=== PATIENT | female | born 1940 | race Caucasian/White ===

== ENCOUNTER 2017-06-18 10:09 | Outpatient (CLI) | payer MEDICARE, MEDICAID ==
[2017-06-18 19:36] LABS: ALBUMIN 4.3 g/dL (3.2-5.5); ALBUMIN/GLOBULIN RATIO 1.5 (1.0-2.2); ALKALINE PHOSPHATASE 78 IU/L (42-121); ALT ALANINE AMINOTRANSFERASE 16 IU/L (10-60); AST ASPARTATE AMINOTRANSFERASE 25 IU/L (10-42); BILIRUBIN,TOTAL 0.4 mg/dL (0.2-1.0); BUN - BLOOD UREA NITROGEN 23 mg/dL (6-20); CALCIUM 9.4 mg/dL (8.5-10.3); CARBON DIOXIDE - CO2 26 mmol/L (21-32); CHLORIDE 104 mmol/L (101-111); CHOL/HDL RATIO 3.3 (<4.4); CHOLESTEROL 209 mg/dL; CREATININE 1.2 mg/dL (0.4-1.0); GFR - MDRD 44 (>89); GLUCOSE 126 mg/dL (70-100); HDL CHOLESTEROL 63 mg/dL; LDL CHOLESTEROL,CALCULATED 109 mg/dL; LDL/HDL RATIO 1.7 (<4.4); SODIUM 140 mmol/L (135-145); TOTAL PROTEIN 7.2 g/dL (6.7-8.2); VLDL CHOLESTEROL 37 mg/dL
[2017-06-18 20:01] LABS: HEMOGLOBIN A1C 0.6 g/dL; HEMOGLOBIN A1C % 6.1 % (4.6-6.2)
== END 2017-06-18 10:10 | disposition home or self-care (01) ==
LOC: LAB.WCP 10:09
PROVIDERS: ATTEND Physician Assistant Medical
DX: E11.9 Type 2 diabetes mellitus without complications (principal)
CPT/HCPCS: 36415; 80053; 80061; 83036

== ENCOUNTER 2017-07-01 13:08 | Outpatient (CLI) | payer MEDICARE, MEDICAID ==
--- NOTE | 2017-07-02 11:40 | Mammography Report ---
DATE OF SERVICE: 07/01/2017 DIGITAL SCREENING MAMMOGRAM: 07/01/2017 CLINICAL INDICATION: A 77-year-old nulliparous patient with history of benign biopsy for screening. COMPARISON: 11/2013, 10/2012, 07/2011, 02/2010. FINDINGS: The breasts again demonstrate scattered fibroglandular densities bilaterally. Coarse and punctate, typically benign calcifications are present. Post-biopsy changes in the right breast are stable, no suspicious masses, clustered microcalcifications, or regions of architectural distortion are identified. IMPRESSION: BENIGN FINDINGS. RECOMMENDATION: Routine annual screening unless otherwise clinically indicated. BIRADS CATEGORY 2 - BENIGN FINDINGS. STANDARD QUALIFYING STATEMENTS: 1. This examination was reviewed with the aid of Computer-Aided Detection (CAD). 2. A negative or benign imaging report should not delay biopsy if clinically suspicious findings are present. Consider surgical consultation if warranted. More than 5% of cancers are not identified by imaging. 3. Dense breasts may obscure an underlying neoplasm. TD: 07/02/2017 12:39
== END 2017-07-01 13:09 | disposition home or self-care (01) ==
LOC: DI 13:08
PROVIDERS: ATTEND Physician Assistant Medical
DX: Z12.31 Encounter for screening mammogram for malignant neoplasm of breast (principal)
CPT/HCPCS: 77067

== ENCOUNTER 2017-10-15 08:00 | Outpatient (CLI) | payer MEDICARE, MEDICAID ==
[2017-10-15 13:45] LABS: ALBUMIN 3.9 g/dL (3.2-5.5); ALBUMIN/GLOBULIN RATIO 1.4 (1.0-2.2); ALKALINE PHOSPHATASE 70 IU/L (42-121); ALT ALANINE AMINOTRANSFERASE 17 IU/L (10-60); AST ASPARTATE AMINOTRANSFERASE 20 IU/L (10-42); BILIRUBIN,TOTAL 0.5 mg/dL (0.2-1.0); BUN - BLOOD UREA NITROGEN 14 mg/dL (6-20); CALCIUM 9.5 mg/dL (8.5-10.3); CARBON DIOXIDE - CO2 28 mmol/L (21-32); CHLORIDE 105 mmol/L (101-111); CHOL/HDL RATIO 4.1 (<4.4); CHOLESTEROL 181 mg/dL; CREATININE 1.1 mg/dL (0.4-1.0); GFR - MDRD 48 (>89); GLUCOSE 151 mg/dL (70-100); HDL CHOLESTEROL 44 mg/dL; LDL CHOLESTEROL,CALCULATED 64 mg/dL; LDL/HDL RATIO 1.5 (<4.4); SODIUM 139 mmol/L (135-145); TOTAL PROTEIN 6.7 g/dL (6.7-8.2); VLDL CHOLESTEROL 73 mg/dL
[2017-10-15 14:00] LABS: HEMOGLOBIN A1C 0.72 g/dL; HEMOGLOBIN A1C % 6.5 % (4.6-6.2)
== END 2017-10-15 08:01 | disposition home or self-care (01) ==
LOC: LAB.WCP 08:00
PROVIDERS: ATTEND Physician Assistant Medical
DX: E11.9 Type 2 diabetes mellitus without complications (principal)
CPT/HCPCS: 36415; 80053; 80061; 83036; 83721

== ENCOUNTER 2018-01-04 19:24 | Emergency (ER) | payer MEDICARE, MEDICAID ==
--- NOTE | 2018-01-04 22:36 | ED Physician Documentation ---
PD HPI HEADACHE - Stated complaint Stated Complaint: HEADACHE/HIGH BP - Chief complaint Chief Complaint: General - History obtained from History obtained from: Patient - History of Present Illness Timing - onset: How many hours ago (6-7), Today Timing - onset during: Light activity (she was at store and there was sample of energy drink C4. she had small cup of it and soon after started to feel headache , nauseated. Took BP when got home and it was quite elevated. Symptoms have persisted and BP was going higher.) Timing - duration: Hours Timing - details: Gradual onset Worst headache ever?: No: Worst headache ever? Location: Global Quality: Throbbing Associated symptoms: Nausea, Other (feeling lightheaded). No: Fever, Stiff neck , Vomiting, Weakness, Numbness Contributing factors: Hypertension. No: Recent illness Similar symptoms before: Has not had sx before Recently seen: Not recently seen Review of Systems Constitutional: denies: Fever, Chills, Myalgias Nose: denies: Rhinorrhea / runny nose, Congestion Throat: denies: Sore throat Respiratory: denies: Cough GI: reports: Nausea. denies: Abdominal Pain, Vomiting, Diarrhea Skin: denies: Rash, Lesions Neurologic: reports: Generalized weakness, Headache. 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, Other Derm: Skin cancer surgery - Present Medications Home Medications: Ambulatory Orders Medication Instructions Recorded Confirmed Allopurinol 100 mg PO BID 01/05/18 01/05/18 Aspirin [Aspirin EC] 162.5 mg PO DAILY 01/05/18 01/05/18 Atorvastatin Calcium 40 mg PO DAILY 01/05/18 01/05/18 Ferrous Sulfate 325 mg PO DAILY 01/05/18 01/05/18 Lisinopril 20 mg PO BID 01/05/18 01/05/18 Metformin HCl 850 mg PO BID 01/05/18 01/05/18 Metoprolol Tartrate 50 mg PO DAILY 01/05/18 01/05/18 amLODIPine [Norvasc] 5 mg PO DAILY #30 tablet 01/06/18 - Allergies Allergies/Adverse Reactions: Allergies Allergy/AdvReac Type Severity Reaction Status Date / Time codeine Allergy Nausea Verified 01/04/18 19:49 erythromycin base Allergy Rash Verified 01/04/18 19:49 - Social History Does the pt smoke?: No Smoking Status: Never smoker Does the pt drink ETOH?: No Does the pt have substance abuse?: No - Immunizations Immunizations are current?: Yes - POLST Patient has POLST: No PD ED PE NORMAL - Vitals Vital signs reviewed: Yes - General General: Alert and oriented X 3, No acute distress, Well developed/nourished - HEENT HEENT: PERRL, EOMI, Pharynx benign, Other (fundi appear normal) - Neck Neck: Supple, no meningeal sign, No JVD - Cardiac Cardiac: RRR, No murmur - Respiratory Respiratory: Clear bilaterally - Abdomen Abdomen: Soft, Non tender - Derm Derm: Normal color, Warm and dry - Extremities Extremities: No deformity, No tenderness to palpate - Neuro Neuro: Alert and oriented X 3, 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 Improving here and so would not treat BP per se and just gave med for headache. No focal neuro symptoms. ), d/w patient - Sepsis Event Vital Signs: Oxygen O2 Source Room air Departure - Departure Disposition: 01 Home, Self Care Clinical Impression: Elevated blood pressure reading Headache Qualifiers: Headache type: unspecified Headache chronicity pattern: acute headache Intractability: not intractable Qualified Code(s): R51 - Headache Condition: Stable Record reviewed to determine appropriate education?: Yes Follow-Up: Aicha Parra PA-C [Primary Care Provider] - Comments: Headache, nausea, elevated blood pressure are listed side effects to the C4 energy drink on quick reference that I just did. This seems consistent with the way you felt today. No other apparent worse cause at this time. Take usual medications for tonight. Drink lots of fluids. You should be feeling well into tomorrow. Re-check if recurrent symptoms otherwise. Discharge Date/Time: 01/04/18 23:20
[2018-01-04 23:20] VITALS: BP 165/79
== END 2018-01-04 23:20 | disposition home or self-care (01) ==
LOC: ED 19:24
DX: I10 Essential (primary) hypertension (principal); R51 Headache; E78.00 Pure hypercholesterolemia, unspecified; E11.9 Type 2 diabetes mellitus without complications; M19.90 Unspecified osteoarthritis, unspecified site; Z79.84 Long term (current) use of oral hypoglycemic drugs; Z79.82 Long term (current) use of aspirin
CPT/HCPCS: 99283

== ENCOUNTER 2018-01-05 10:43 | Outpatient (CLI) | payer MEDICARE, MEDICAID | END 2018-01-05 10:44 | disposition critical access hospital (66) | LOC: EMS 10:43 | PROVIDERS: ATTEND Surgery | DX: R07.9 Chest pain, unspecified (principal) | CPT/HCPCS: A0425; A0427 ==

== ENCOUNTER 2018-01-05 11:07 | Observation (INO) | payer MEDICARE, MEDICAID ==
[2018-01-05] MEDS ORDERED: NITROGLYCERIN SL 0.4 MG TABLET SL STA (11:27)
--- NOTE | 2018-01-05 11:32 | ED Physician Documentation ---
PD HPI CHEST PAIN - Stated complaint Stated Complaint: chest discomfort - Chief complaint Chief Complaint: Cardiac - History obtained from History obtained from: Patient, EMS - History of Present Illness Timing - onset: Today (about 9 am.) Timing - onset during: Rest Timing - details: Still present Pain level max: 5 Pain level now: 4 Quality: Tightness Location: Substernal Improved by: Nitro Similar symptoms before: Has not had sx before Recently seen: Clinic - Treatment prior to arrival Treatment prior to arrival: 4 baby aspirin were administered in clinic, and one SL NTG by medics. - Additional information Additional information: The patient is a 77-year-old female who arrives via ambulance after presenting to her clinic physician with chest discomfort, and complaining that "my blood pressure is scaring me." Her blood pressure was 235 systolic at home. She describes slight associated substernal chest discomfort that she rated 5 out of 10 in severity. In clinic she was given 4 baby aspirin, and medics administered 1 sublingual nitroglycerin while en route to the hospital. At the time of arrival her chest discomfort is rated at 4 out of 10 in severity. She denies any associated shortness of breath or vomiting, although she had slight nausea earlier this morning. She denies history of similar symptoms in the past. She is treated for hypertension with lisinopril 20 mg twice daily and metoprolol 50 mg twice daily. She was seen in the emergency department last night with high blood pressure, but it resolved spontaneously and she was discharged without any further change in her medication. Review of Systems Constitutional: denies: Fever, Fatigue Nose: denies: Congestion Throat: denies: Sore throat Cardiac: reports: Chest pain / pressure. 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, Other Derm: Skin cancer surgery - Present Medications Home Medications: Ambulatory Orders Medication Instructions Recorded Confirmed Allopurinol 100 mg PO BID 01/05/18 01/05/18 Aspirin [Aspirin EC] 162.5 mg PO DAILY 01/05/18 01/05/18 Atorvastatin Calcium 40 mg PO DAILY 01/05/18 01/05/18 Ferrous Sulfate 325 mg PO DAILY 01/05/18 01/05/18 Lisinopril 20 mg PO BID 01/05/18 01/05/18 Metformin HCl 850 mg PO BID 01/05/18 01/05/18 Metoprolol Tartrate 50 mg PO DAILY 01/05/18 01/05/18 - Allergies Allergies/Adverse Reactions: Allergies Allergy/AdvReac Type Severity Reaction Status Date / Time codeine Allergy Nausea Verified 01/04/18 19:49 erythromycin base Allergy Rash Verified 01/04/18 19:49 - Social History Does the pt smoke?: No Smoking Status: Never smoker Does the pt drink ETOH?: No Does the pt have substance abuse?: No - Immunizations Immunizations are current?: Yes - POLST Patient has POLST: No PD ED PE NORMAL - Vitals Vital signs reviewed: Yes (hypertensive) - General General: Alert and oriented X 3, Well developed/nourished - HEENT HEENT: Atraumatic, Moist mucous membranes, Pharynx benign - Neck Neck: No adenopathy, No JVD - Cardiac Cardiac: RRR, No murmur - Respiratory Respiratory: No respiratory distress, Clear bilaterally - Abdomen Abdomen: Soft, Non tender - Back Back: No CVA TTP - Derm Derm: No rash - Extremities Extremities: No edema, No calf tenderness / cord - Neuro Neuro: Alert and oriented X 3, No motor deficit, Normal speech Results - Vitals Vitals: Vital Signs - 24 hr 01/05/18 01/05/18 01/05/18 11:12 13:03 17:12 Temperature 36.4 C L Heart Rate 57 L 58 L 58 L Respiratory 18 16 17 Rate Blood Pressure 223/96 H 196/71 H 165/50 H O2 Saturation 97 98 97 Oxygen O2 Source Room air - EKG (time done) 11:14 Rate: Rate (enter#) (57) Rhythm: Other (junctional rhythm) QRS: Normal Ischemia: Normal ST segments Compare to prior EKG: Old EKG unavailable Computer interpretation: Agree with computer 17:01 Rate: Rate (enter#) (58) Rhythm: NSR [place]: Normal Intervals: Normal OR QRS: Normal Ischemia: Normal ST segments Other comments: Other comments (Early R-wave transition.) Compare to prior EKG: Unchanged from prior EKG Computer interpretation: Agree with computer - Labs Labs: Laboratory Tests 01/05/18 01/05/18 01/05/18 11:28 11:45 11:45 WBC 8.9 RBC 4.31 Hgb 12.5 Hct 37.6 MCV 87.1 MCH 29.0 MCHC 33.3 RDW 13.4 Plt Count 237 MPV 9.3 Neut # (Auto) 6.8 H Lymph # (Auto) 1.2 L Dale # (Auto) 0.7 Eos # (Auto) 0.2 Baso # (Auto) 0.1 Absolute Nucleated RBC 0.00 Nucleated RBC % 0.0 Sodium 140 Potassium 3.7 Chloride 104 Carbon Dioxide 28 Anion Gap 8.0 BUN 15 Creatinine 1.1 H Estimated GFR (MDRD) 48 L Glucose 146 H Glycated Hemoglobin 7.1 H Estim Average Glucose 157 H Calcium 9.2 Total Bilirubin 0.8 AST 22 ALT 17 Alkaline Phosphatase 84 Troponin I Total Protein 6.5 L Albumin 3.7 Globulin 2.8 Albumin/Globulin Ratio 1.3 Lipase 47 01/05/18 01/05/18 11:45 16:36 WBC RBC Hgb Hct MCV MCH MCHC RDW Plt Count MPV Neut # (Auto) Lymph # (Auto) Dale # (Auto) Eos # (Auto) Baso # (Auto) Absolute Nucleated RBC Nucleated RBC % Sodium Potassium Chloride Carbon Dioxide Anion Gap BUN Creatinine Estimated GFR (MDRD) Glucose Glycated Hemoglobin Estim Average Glucose Calcium Total Bilirubin AST ALT Alkaline Phosphatase Troponin I < 0.04 0.05 Total Protein Albumin Globulin Albumin/Globulin Ratio Lipase - Rads (name of study) 1-view CXR Radiology: Prelim report reviewed, EMP read contemporaneously, See rad report ( No radiographically apparent abnormality in the chest.) PD MEDICAL DECISION MAKING - ED course Complexity details: reviewed old records, reviewed results, re-evaluated patient , considered differential, d/w patient, d/w family, d/w regional sales consultant ED course: The patient's presentation is significant for chest discomfort with hypertension. Her initial EKG does not reveal acute ischemic abnormalities, and her initial troponin level is normal at less than 0.04. 1 sublingual nitroglycerin was administered, and her chest discomfort completely resolved. Her blood pressure came down to 145 systolic. She remained asymptomatic throughout the remainder of her time in the emergency department. A second troponin level was checked 5 hours later and it was still well within the normal range, but at 0.05 was ever so slightly higher than the initial troponin. I discussed her condition with gasket inspector, Dr. Ibrahim, who advises observing her for a repeat troponin level, stress test, and maximization of blood pressure control. I discussed her condition with Dr. Monsalve, who accepts her for further evaluation and treatment. - Sepsis Event Vital Signs: Vital Signs - 24 hr 01/05/18 01/05/18 01/05/18 11:12 13:03 17:12 Temperature 36.4 C L Heart Rate 57 L 58 L 58 L Respiratory 18 16 17 Rate Blood Pressure 223/96 H 196/71 H 165/50 H O2 Saturation 97 98 97 Oxygen O2 Source Room air Departure - Departure Disposition: ED Place in Observation Clinical Impression: Chest pain, rule out acute myocardial infarction Hypertension Qualifiers: Hypertension type: essential hypertension Qualified Code(s): I10 - Essential ( primary) hypertension Condition: Stable Discharge Date/Time: 01/05/18 18:18
[2018-01-05 11:54] LABS: BASOPHILS # (AUTO) 0.1 10^3/uL (0.0-0.1); BASOPHILS % (AUTO) 0.7 %; EOSINOPHILS # (AUTO) 0.2 10^3/uL (0.0-0.7); EOSINOPHILS % (AUTO) 2.2 %; HGB - HEMOGLOBIN 12.5 g/dL (12.0-16.0); LYMPHOCYTES # (AUTO) 1.2 10^3/uL (1.5-3.5); LYMPHOCYTES % (AUTO) 13.4 %; MEAN CORPUSCULAR HGB CONC 33.3 g/dL (32.0-36.0); MEAN CORPUSCULAR VOLUME 87.1 fL (81.0-99.0); MEAN PLATELET VOLUME 9.3 fL (7.9-10.8); MONOCYTES # (AUTO) 0.7 10^3/uL (0.0-1.0); MONOCYTES % (AUTO) 7.5 %; NEUTROPHILS # (AUTO) 6.8 10^3/uL (1.5-6.6); NEUTROPHILS % (AUTO) 76.2 %; PLT - PLATELET COUNT 237 10^3/uL (130-450); RED BLOOD COUNT 4.31 10^6/uL (4.20-5.40); RED CELL DISTRIBUTION WIDTH 13.4 % (12.0-15.0); WHITE BLOOD COUNT 8.9 x10^3/uL (4.8-10.8)
[2018-01-05 12:06] LABS: ALBUMIN 3.7 g/dL (3.2-5.5); ALBUMIN/GLOBULIN RATIO 1.3 (1.0-2.2); BILIRUBIN,TOTAL 0.8 mg/dL (0.2-1.0); CALCIUM 9.2 mg/dL (8.5-10.3); CREATININE 1.1 mg/dL (0.4-1.0); TOTAL PROTEIN 6.5 g/dL (6.7-8.2)
--- NOTE | 2018-01-05 13:12 | XRAY Report ---
Procedure Date: 01/05/2018 Accession Number: [id number] / [id number] Procedure: XR - Chest 1 View X-Ray CPT Code: 67367 FULL RESULT: EXAM: CHEST RADIOGRAPHY EXAM DATE: 01/05/2018 12:50 PM. CLINICAL HISTORY: Chest pain. COMPARISON: None. TECHNIQUE: 1 view. 2 images are provided. FINDINGS: Lungs/Pleura: No focal opacities evident. No pleural effusion. No pneumothorax. Mediastinum: Within exam limitations, the cardiomediastinal contour is normal. Aortic atherosclerosis. Other: None. IMPRESSION: No radiographically apparent acute abnormality in the chest. RADIA
[2018-01-05] MEDS ORDERED: ONDANSETRON 4 MG/2 ML VIAL IVP PRN (17:38)
[2018-01-05] MEDS ORDERED: ONDANSETRON ODT 4 MG TABLET TL PRN (17:38)
[2018-01-05] MEDS ORDERED: SODIUM CHLORIDE FLUSH 0.9% 10 ML SYRINGE IVP PRN (17:38)
[2018-01-05] MEDS ORDERED: MORPHINE 2 MG/ML SYRINGE IVP PRN (17:41)
[2018-01-05] MEDS ORDERED: NITROGLYCERIN SL 0.4 MG TABLET SL PRN (17:41)
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
[2018-01-05 18:29] LABS: HB2 TOTAL 13.2 g/dL; HEMOGLOBIN A1C 0.72 g/dL; HEMOGLOBIN A1C % 7.1 % (4.6-6.2)
[2018-01-05 18:29] LABS: CALCIUM 9.3 mg/dL (8.5-10.3); CREATININE 1.2 mg/dL (0.4-1.0)
[2018-01-05] MEDS: hydrALAZINE INJ 20 MG/ML VIAL IVP PRN (19:50)
[2018-01-05] MEDS ORDERED: hydrALAZINE INJ 20 MG/ML VIAL ONE (19:58)
[2018-01-05] MEDS ORDERED: INSULIN ASPART 300 UNIT/3 ML PEN SUBQ SCH (21:00)
[2018-01-05] MEDS ORDERED: ATORVASTATIN 40 MG TABLET PO SCH (21:00)
[2018-01-05] MEDS ORDERED: METOPROLOL TARTRATE 50 MG TABLET PO SCH (21:00)
[2018-01-05] MEDS ORDERED: LISINOPRIL 20 MG TABLET PO SCH (21:00)
[2018-01-05] MEDS: LISINOPRIL 20 MG TABLET PO SCH (22:41)
[2018-01-05] MEDS: METOPROLOL TARTRATE 50 MG TABLET PO SCH (22:41)
[2018-01-06] MEDS: SODIUM CHLORIDE FLUSH 0.9% 10 ML SYRINGE IVP SCH ×2 (02:43→09:34)
[2018-01-06] MEDS: hydrALAZINE INJ 20 MG/ML VIAL IVP PRN ×2 (05:13→13:19)
[2018-01-06] MEDS: INSULIN REGULAR HUMAN 100 UNIT/1 ML 10 ML MDV SUBQ SCH ×2 (05:29→11:56)
[2018-01-06] MEDS: METOPROLOL TARTRATE 50 MG TABLET PO SCH (06:59)
[2018-01-06] MEDS: LISINOPRIL 20 MG TABLET PO SCH (06:59)
--- NOTE | 2018-01-06 07:40 | Discharge Plan ---
Discharge Plan Disposition: 01 Home, Self Care Condition: Stable Prescriptions: amLODIPine [Norvasc] 5 mg PO DAILY #30 tablet Diet: Cardiac Activity Restrictions: Activity as Tolerated Shower Restrictions: No Driving Restrictions: No Additional Instructions or Follow Up instructions: Your were admitted to the hospital because of chest pain that went straight through to your back and radiated to your left shoulder. This was in association with a very severely elevated blood pressure. We did 3 sets of blood tests to make sure you were not having a heart attack. You are not. Your EKG is stable. Your chest x-ray did not show any changes in your aorta because sometimes chest pain can be a leaking aorta. However, your blood pressure is still very high at times. We did a renal artery ultrasound to see if the arteries were open. In some patients the arteries can get very narrow and Trickett the kidneys into thinking may have low blood pressure. If the kidneys think you have low blood pressure they respond by secreting a protein to give you high blood pressure. That ultrasound result is pending at discharge and your provider will need to review those results with you. Please make sure you see your primary care provider in follow-up in the next few days. I want to make sure that your blood pressure stays stable. In addition to your lisinopril and metoprolol I have added a medication called amlodipine. You may need all 3 blood pressure drugs to control your blood pressure in the future. You will also need to be referred for a heart stress test. We were unable to do one here before you left because our machine is being replaced by a new machine. Have your primary care provider make that referral to a Physics And Astronomy Professor of your choice. No Smoking: If you smoke, Please STOP! Call for help. Follow-up with: Aicha Parra PA-C [Primary Care Provider] -
[2018-01-06] MEDS ORDERED: cloNIDine 0.1 MG PATCH TOP SCH (08:00)
[2018-01-06] MEDS ORDERED: POLYETHYLENE GLYCOL 3350 17 GM PACKET PO SCH (09:00)
[2018-01-06] MEDS: amLODIPine 5 MG TABLET PO SCH ×2 (09:34→10:17)
--- NOTE | 2018-01-06 13:57 | DISCHARGE SUMMARY ---
"Discharge Summary Admit Date: 01/05/18 Discharge Date: 01/06/18 Discharging Provider: Verna Monsalve MD Primary Care Provider: LOTTIE Howard Code Status: Attempt Resuscitation Condition at Discharge: Stable Discharge Disposition: 01 Home, Self Care - DIAGNOSES Discharge Diagnoses with Status of Each Condition: 1. Chest pain 2. Uncontrolled hypertension 3. Controlled type 2 diabetes mellitus with stage III chronic kidney disease 4. Hyperlipidemia - HPI History of Present Illness: The patient is a morbidly obese white female who has hypertension, hyperlipidemia, and diabetes as cardiac risk factors. She was seen in the emergency room yesterday because of a headache, and was found to have hypertension. It was attributed to an energy drink she drank, and she was sent home. She continued to have a mild headache, felt woozy, and having back pain. The back pain has been going on for a week between her shoulder blades and radiating to her left upper arm and shoulder. When she continued to feel badly she took her blood pressure and it was 208/90 in the right arm and 210/84 in the left arm. She called her primary care office and they saw her in the office. She was given aspirin in the office. And because of continued blood pressure elevation and a junctional rhythm on EKG she was sent to the emergency room.She was also having some mild chest discomfort with it. She was nauseated. But she is always nauseated when she takes her pills on an empty stomach so she does not feel that is new. There is no diaphoresis. She denies shortness of breath. In the emergency room she was evaluated by Dr. Mckeon. Her EKG showed a normal sinus rhythm. There was no junctional rhythm. She was definitely hypertensive with a systolic of 223 over a diastolic of 96. She was given nitroglycerin in the emergency room. One dose. And between 11 in the morning and 5 in the afternoon blood pressure went to 165/50. Initial troponin was undetectable at less than 0.04. And [address] hours later was 0.05. Dr. Mckeon spoke to Dr. Aguilar, Cardiology. She felt it would be prudent to place the patient in observation to repeat her cardiac enzymes in [address] Mckeon intimated that we could do a stress test tomorrow. We do not have nuclear medicine capability and Dr. Aguilar had wanted a stress test on this patient before discharge. As such we will need to make arrangements for stress test imaging in an outside facility at discharge. In review of her old records she was seen in [facility] in January 2012 for the same symptoms. She was dizzy for 2 days, not feeling well, and blood pressure was elevated. At that time she was on lisinopril. Blood pressure was 220/84. She was given hydrochlorothiazide and metoprolol was added and she was told to follow-up with her primary care provider - CONSULTS | PROCEDURES Procedures: renal artery ultrasound: - HOSPITAL COURSE Hospital Course: (1) Chest pain Conclusion/Plan: She has all the risk factors for coronary artery disease including age, diabetes , hypertension, hyperlipidemia. All of her risk factors appear well managed and review of her outpatient charts and her numbers. Nevertheless she has quite elevated blood pressure. That could also be causing the chest pain. Serial cardiac enzymes 4 were all negative. EKG without changes. Telemetry overnight without arrhythmia. At this time we do not have nuclear medicine imaging and the patient will need to either return to this facility in the near future when nuclear medicine is back up and running. Or, I would strongly recommend, she be referred to [facility] or [facility] for nuclear medicine stress test. (2) Hypertension Conclusion/Plan: She is not controlled at this time. The day before admission, she had a high energy drink with no medication. She has been taking her medications since then and blood pressure is still elevated. I added Norvasc. She will need blood pressure followup. Still goes up to 200's on occasion. I have ordered a renal artery ultrasound and results are pending at discharge. Provider will need to review with patient. Preliminary report shows medical renal disease, but no renal artery stenosis. Qualifiers: Hypertension type: essential hypertension Qualified Code(s): I10 - Essential (primary) hypertension (3) Controlled type 2 diabetes mellitus with stage 3 chronic kidney disease Conclusion/Plan: A1c is controlled in her medical records. On very minimal medication. I did explain that metformin sometimes causes diarrhea to worsen. She appears to have irritable bowel syndrome 5-6 years before her use of metformin. She says that she is pretty comfortable with the metformin and can live with the diarrhea and prefers to stay on it. A1c is 7/1%. Glucose was 125-160 here. No change made in outpatient medicines. Qualifiers: Diabetes mellitus exterminator helper termite insulin use: without exterminator helper termite use Qualified Code(s): E11.22 - Type 2 diabetes mellitus with diabetic chronic kidney disease ; N18.3 - Chronic kidney disease, stage 3 (moderate); N18.3 - Chronic kidney disease, stage 3 (moderate); N18.3 - Chronic kidney disease, stage 3 (moderate) (4) Hyperlipidemia Conclusion/Plan: Ongoing risk factor management with a statin. Continue same. - ALLERGIES Allergies/Adverse Reactions: Allergies Allergy/AdvReac Type Severity Reaction Status Date / Time codeine Allergy Nausea Verified 01/04/18 19:49 erythromycin base Allergy Rash Verified 01/04/18 19:49 - MEDICATIONS Home Medications: Ambulatory Orders Medication Instructions Recorded Confirmed Allopurinol 100 mg PO BID 01/05/18 01/05/18 Aspirin [Aspirin EC] 162.5 mg PO DAILY 01/05/18 01/05/18 Atorvastatin Calcium 40 mg PO DAILY 01/05/18 01/05/18 Ferrous Sulfate 325 mg PO DAILY 01/05/18 01/05/18 Lisinopril 20 mg PO BID 01/05/18 01/05/18 Metformin HCl 850 mg PO BID 01/05/18 01/05/18 Metoprolol Tartrate 50 mg PO DAILY 01/05/18 01/05/18 amLODIPine [Norvasc] 5 mg PO DAILY #30 tablet 01/06/18 - PHYSICAL EXAM AT DISCHARGE General Appearance: positive: No acute distress, Alert Eyes Bilateral: positive: PERRL, EOMI ENT: positive: Pharynx nml Neck: positive: No JVD. negative: Stiff neck, Carotid bruit Respiratory: positive: Chest non-tender. negative: Wheezes, Rales, Rhonchi Cardiovascular: positive: Regular rate & rhythm. negative: Systolic murmur, Gallop/S4, Friction rub Peripheral Pulses: positive: 1+ Abdomen: positive: Non-tender, No organomegaly, Nml bowel sounds, No distention , Other (obese) Skin: positive: Warm, Dry Extremities: positive: Non-tender, No pedal edema Neurologic/Psychiatric: positive: Oriented x3, CN's nml (2-12), Motor nml, Sensation nml - LABS Result Diagrams: 01/05/18 11:45 01/05/18 18:15"
--- NOTE | 2018-01-06 13:57 | Ultrasound Report ---
Procedure Date: 01/06/2018 Accession Number: [id number] / [id number] Procedure: US - Arterial Visceral Complete CPT Code: FULL RESULT: EXAM: RENAL ARTERY DOPPLER ULTRASOUND EXAM DATE: 01/06/2018 01:14 PM. CLINICAL HISTORY: Severely elevated hypertension. COMPARISON: 06/13/2014. TECHNIQUE: Real-time sonographic vascular imaging was performed by the internal audit consultant through the renal arterial system with a linear transducer utilizing color-flow, Doppler flow, and spectral analysis. Multiple field service representative static images were saved for review. FINDINGS: Right kidney measures 10.5 x 5.9 x 5.4 cm. No hydronephrosis. Mildly increased cortical echogenicity. No mass or stone evident. Left kidney measures 10.6 x 5.5 x 4.8 cm. No hydronephrosis. Mildly increased cortical echogenicity. No mass or stone evident. RIGHT: Right Segmental Artery: Upper pole: PSV 21 cm/sec, RI 0.78. Mid pole: PSV 24 cm/sec, RI 0.78. Lower pole: PSV 21 cm/sec, RI 0.80. Right Renal Artery: Origin: PSV 135 cm/sec, RA/AO 1.82. Proximal: PSV 160 cm/sec, RA/AO 2.16. Mid: PSV 128 cm/sec, RA/AO 1.73. Distal: PSV 109 cm/sec, RA/AO 1.47. Aorta PSV: 74 cm/sec. RRV Patent: Yes. LEFT: Left Segmental Artery: Upper pole: PSV 22 cm/sec, RI 0.79. Mid pole: PSV 19 cm/sec, RI 0.76. Lower pole: PSV 22 cm/sec, RI 0.82. Left Renal Artery: Origin: PSV 93 cm/sec, RA/AO 1.26. Proximal: PSV 98 cm/sec, RA/AO 1.32. Mid: PSV 78 cm/sec, RA/AO 1.05. Distal: PSV 114 cm/sec, RA/AO 1.54. LRV Patent: Yes. IMPRESSION: 1. No sonographic evidence of renal artery stenosis. 2. Mildly increased renal cortical echogenicity is consistent with medical renal disease. Mildly elevated resistive indices of intrarenal arteries. CRITERIA FOR CLASSIFICATION OF RENAL ARTERY (RA) DISEASE BY DUPLEX SCANNING: RA Diameter Reduction/ RA PSV/ RAR: Normal, < 180 cm/sec, < 3.5 < 60%, >= 180 cm/sec, < 3.5 >= 60%, >= 180 cm/sec, >= 3.5 Total Occlusion: Undetectable; Not applicable RADIA
[2018-01-06 14:12] VITALS: BP 156/47
== END 2018-01-06 14:06 | disposition home or self-care (01) ==
LOC: EDUNIT# → ED 11:07 → MS2 17:38
PROVIDERS: ADMIT Specialist; ATTEND Specialist
DX: R07.89 Other chest pain (principal); I10 Essential (primary) hypertension; E78.5 Hyperlipidemia, unspecified; E11.22 Type 2 diabetes mellitus with diabetic chronic kidney disease; N18.3 Chronic kidney disease, stage 3 (moderate); E66.01 Morbid (severe) obesity due to excess calories; K58.0 Irritable bowel syndrome with diarrhea; F41.9 Anxiety disorder, unspecified; M10.9 Gout, unspecified; Z68.31 Body mass index [BMI] 31.0-31.9, adult; Z79.82 Long term (current) use of aspirin; Z79.899 Other long term (current) drug therapy; Z79.84 Long term (current) use of oral hypoglycemic drugs; Z87.891 Personal history of nicotine dependence; Z85.820 Personal history of malignant melanoma of skin
CPT/HCPCS: 36415; 71045; 80048; 80053; 83036; 83690; 84484; 85025; 93005; 93975; 96374; 96376; 99284; A9270; G0378

== ENCOUNTER 2018-01-08 08:00 | Outpatient (CLI) | payer MEDICARE, MEDICAID ==
[2018-01-08 12:56] LABS: CALCIUM 9.5 mg/dL (8.5-10.3); CREATININE 1.2 mg/dL (0.4-1.0); MAGNESIUM 1.5 mg/dL (1.7-2.8)
== END 2018-01-08 08:01 | disposition home or self-care (01) ==
LOC: LAB.WCP 08:00
PROVIDERS: ATTEND Family Medicine
DX: I49.8 Other specified cardiac arrhythmias (principal); I10 Essential (primary) hypertension
CPT/HCPCS: 36415; 80048; 82088; 83735; 84244

== ENCOUNTER 2018-02-04 08:21 | Outpatient (CLI) | payer MEDICARE, MEDICAID ==
[2018-02-04 12:44] LABS: ALBUMIN/GLOBULIN RATIO 1.3 (1.0-2.2); ALKALINE PHOSPHATASE 74 IU/L (42-121); ALT ALANINE AMINOTRANSFERASE 21 IU/L (10-60); AST ASPARTATE AMINOTRANSFERASE 22 IU/L (10-42); BILIRUBIN,TOTAL 0.8 mg/dL (0.2-1.0); BUN - BLOOD UREA NITROGEN 32 mg/dL (6-20); CALCIUM 9.9 mg/dL (8.5-10.3); CARBON DIOXIDE - CO2 26 mmol/L (21-32); CHLORIDE 107 mmol/L (101-111); CHOL/HDL RATIO 2.7 (<4.4); CHOLESTEROL 107 mg/dL; CREATININE 1.4 mg/dL (0.4-1.0); GFR - MDRD 36 (>89); GLUCOSE 146 mg/dL (70-100); HDL CHOLESTEROL 40 mg/dL; LDL CHOLESTEROL,CALCULATED 21 mg/dL; LDL/HDL RATIO 0.5 (<4.4); MAGNESIUM 1.9 mg/dL (1.7-2.8); SODIUM 139 mmol/L (135-145); VLDL CHOLESTEROL 46 mg/dL
[2018-02-04 20:41] LABS: HB2 TOTAL 12.8 g/dL; HEMOGLOBIN A1C 0.68 g/dL
== END 2018-02-04 08:22 | disposition home or self-care (01) ==
LOC: LAB.WCP 08:21
PROVIDERS: ATTEND Physician Assistant Medical
DX: E11.22 Type 2 diabetes mellitus with diabetic chronic kidney disease (principal); E83.42 Hypomagnesemia
CPT/HCPCS: 36415; 80053; 80061; 83036; 83721; 83735

== ENCOUNTER 2018-05-14 08:40 | Outpatient (CLI) | payer MEDICARE, MEDICAID ==
[2018-05-14 13:28] LABS: ALBUMIN/GLOBULIN RATIO 1.4 (1.0-2.2); ALKALINE PHOSPHATASE 76 IU/L (42-121); ALT ALANINE AMINOTRANSFERASE 19 IU/L (10-60); AST ASPARTATE AMINOTRANSFERASE 20 IU/L (10-42); BILIRUBIN,TOTAL 0.7 mg/dL (0.2-1.0); BUN - BLOOD UREA NITROGEN 23 mg/dL (6-20); CALCIUM 9.4 mg/dL (8.5-10.3); CARBON DIOXIDE - CO2 25 mmol/L (21-32); CHLORIDE 108 mmol/L (101-111); CHOL/HDL RATIO 2.4 (<4.4); CHOLESTEROL 114 mg/dL; CREATININE 1.2 mg/dL (0.4-1.0); GFR - MDRD 43 (>89); GLUCOSE 135 mg/dL (70-100); HDL CHOLESTEROL 48 mg/dL; LDL CHOLESTEROL,CALCULATED 37 mg/dL; LDL/HDL RATIO 0.8 (<4.4); SODIUM 139 mmol/L (135-145); TOTAL PROTEIN 6.8 g/dL (6.7-8.2); VLDL CHOLESTEROL 29 mg/dL
[2018-05-14 14:12] LABS: HB2 TOTAL 12.2 g/dL; HEMOGLOBIN A1C 0.56 g/dL; HEMOGLOBIN A1C % 6.4 % (4.6-6.2)
== END 2018-05-14 08:41 | disposition home or self-care (01) ==
LOC: LAB.WCP 08:40
PROVIDERS: ATTEND Physician Assistant Medical
DX: E11.22 Type 2 diabetes mellitus with diabetic chronic kidney disease (principal)
CPT/HCPCS: 36415; 80053; 80061; 83036; 83721

== ENCOUNTER 2018-11-09 11:03 | Outpatient (CLI) | payer MEDICARE, MEDICAID ==
[2018-11-09 19:11] LABS: ALBUMIN 4.3 g/dL (3.2-5.5); ALBUMIN/GLOBULIN RATIO 1.5 (1.0-2.2); ALKALINE PHOSPHATASE 84 IU/L (42-121); ALT ALANINE AMINOTRANSFERASE 17 IU/L (10-60); AST ASPARTATE AMINOTRANSFERASE 20 IU/L (10-42); BILIRUBIN,TOTAL 0.7 mg/dL (0.2-1.0); BUN - BLOOD UREA NITROGEN 33 mg/dL (6-20); CALCIUM 9.9 mg/dL (8.5-10.3); CARBON DIOXIDE - CO2 25 mmol/L (21-32); CHLORIDE 107 mmol/L (101-111); CHOL/HDL RATIO 2.7 (<4.4); CHOLESTEROL 134 mg/dL; CREATININE 1.5 mg/dL (0.4-1.0); GFR - MDRD 34 (>89); GLUCOSE 125 mg/dL (70-100); HDL CHOLESTEROL 49 mg/dL; LDL CHOLESTEROL,CALCULATED 51 mg/dL; MAGNESIUM 1.7 mg/dL (1.7-2.8); SODIUM 139 mmol/L (135-145); TOTAL PROTEIN 7.2 g/dL (6.7-8.2); VLDL CHOLESTEROL 34 mg/dL
[2018-11-09 19:41] LABS: HB2 TOTAL 13.2 g/dL; HEMOGLOBIN A1C 0.63 g/dL; HEMOGLOBIN A1C % 6.5 % (4.6-6.2)
== END 2018-11-09 11:04 | disposition home or self-care (01) ==
LOC: LAB.WCP 11:03
PROVIDERS: ATTEND Physician Assistant Medical
DX: E11.22 Type 2 diabetes mellitus with diabetic chronic kidney disease (principal); E83.42 Hypomagnesemia
CPT/HCPCS: 36415; 80053; 80061; 83036; 83721; 83735

== ENCOUNTER 2018-12-06 08:00 | Outpatient (CLI) | payer MEDICARE, MEDICAID ==
[2018-12-06 18:09] LABS: MEAN CORPUSCULAR HGB CONC 30.2 g/dL (32.0-36.0); MEAN CORPUSCULAR VOLUME 92.6 fL (81.0-99.0); MEAN PLATELET VOLUME 12.3 fL (7.9-10.8); RED BLOOD COUNT 3.93 10^6/uL (4.20-5.40); RED CELL DISTRIBUTION WIDTH 13.6 % (12.0-15.0); WHITE BLOOD COUNT 8.5 x10^3/uL (4.8-10.8)
[2018-12-06 18:22] LABS: CREATININE 1.4 mg/dL (0.4-1.0)
[2018-12-06 18:27] LABS: CREATININE,URINE 229.5 mg/dL; PROTEIN/CREATININE RATIO,URINE 0.1 (<=0.2)
[2018-12-06 18:40] LABS: CALCIUM 9.5 mg/dL (8.5-10.3)
== END 2018-12-06 08:01 | disposition home or self-care (01) ==
LOC: LAB.WCP 08:00
PROVIDERS: ATTEND Internal Medicine Nephrology
DX: N05.9 Unspecified nephritic syndrome with unspecified morphologic changes (principal); D70.9 Neutropenia, unspecified; R80.9 Proteinuria, unspecified
CPT/HCPCS: 36415; 80048; 82570; 84156; 85027

== ENCOUNTER 2018-12-24 13:15 | Outpatient (CLI) | payer MEDICARE, MEDICAID ==
[2018-12-24 19:04] LABS: CALCIUM 9.6 mg/dL (8.5-10.3); CREATININE 1.5 mg/dL (0.4-1.0)
== END 2018-12-24 23:59 | disposition home or self-care (01) ==
LOC: LAB.WCP 13:15
PROVIDERS: ATTEND Internal Medicine Nephrology
DX: N05.9 Unspecified nephritic syndrome with unspecified morphologic changes (principal)
CPT/HCPCS: 36415; 80048

== ENCOUNTER 2018-12-29 07:45 | Outpatient (CLI) | payer MEDICARE, MEDICAID ==
--- NOTE | 2018-12-29 14:50 | Ultrasound Report ---
Reason: ACUTE KIDNEY INJURY Procedure Date: 12/29/2018 Accession Number: [id number] / [id number] Procedure: US - Retroperitoneal CPT Code: FULL RESULT: EXAM: RENAL ULTRASOUND EXAM DATE: 12/29/2018 08:58 AM. CLINICAL HISTORY: Acute kidney injury. COMPARISON: None. TECHNIQUE: Real-time scanning was performed with static images obtained. FINDINGS: The bilateral cortical echogenicity of the kidneys is slightly increased. Right Kidney: 11.0 cm. There is mild right hydronephrosis. No calculi or mass is identified. Parenchymal flow is preserved for limited color Doppler. Left Kidney: 10.7 cm. Normal echotexture with no stones, contour-deforming masses, or hydronephrosis. Parenchymal flow is preserved for limited color Doppler. Upper pole simple cyst, 1 cm. Bladder: Bilateral jets seen. The prevoid bladder volume was 224 cc. The postvoid bladder volume was 8 cc. Other: None. IMPRESSION: Mild right hydronephrosis with preserved bilateral ureteral jets. Increased cortical echogenicity bilaterally in keeping with medical renal disease. RADIA
== END 2018-12-29 07:46 | disposition home or self-care (01) ==
LOC: DI 07:45
PROVIDERS: ATTEND Internal Medicine Nephrology
DX: N13.30 Unspecified hydronephrosis (principal); N17.9 Acute kidney failure, unspecified
CPT/HCPCS: 76770

== ENCOUNTER 2019-01-14 | Outpatient (CLI) | payer MEDICARE, MEDICAID | END 2019-01-14 23:59 | disposition home or self-care (01) ==

== ENCOUNTER 2019-03-04 08:00 | Outpatient (CLI) | payer MEDICARE, MEDICAID ==
[2019-03-04 12:55] LABS: ALBUMIN 3.7 g/dL (3.2-5.5); ALBUMIN/GLOBULIN RATIO 1.2 (1.0-2.2); BILIRUBIN,TOTAL 0.6 mg/dL (0.2-1.0); CREATININE 1.2 mg/dL (0.4-1.0); TOTAL PROTEIN 6.7 g/dL (6.7-8.2)
[2019-03-04 13:10] LABS: CALCIUM 9.5 mg/dL (8.5-10.3)
[2019-03-04 13:12] LABS: HEMOGLOBIN A1C 0.47 g/dL; HEMOGLOBIN A1C % 6.1 % (4.6-6.2)
== END 2019-03-04 23:59 | disposition home or self-care (01) ==
LOC: LAB.WCP 08:00
PROVIDERS: ATTEND Physician Assistant Medical
DX: E11.29 Type 2 diabetes mellitus with other diabetic kidney complication (principal)
CPT/HCPCS: 36415; 80053; 83036

== ENCOUNTER 2019-12-20 14:40 | Outpatient (CLI) | payer MEDICARE, MEDICAID | END 2019-12-20 23:59 | disposition home or self-care (01) | LOC: LAB 14:40 | PROVIDERS: ATTEND Physician Assistant Medical | DX: J06.9 Acute upper respiratory infection, unspecified (principal); Z20.828 Contact with and (suspected) exposure to other viral communicable diseases | CPT/HCPCS: 81599 ==

== ENCOUNTER 2020-04-20 15:29 | Outpatient (CLI) | payer MEDICARE, OTHER ==
--- NOTE | 2020-04-20 16:45 | XRAY Report ---
PROCEDURE: Lumbar Spine 2 View INDICATIONS: CHRONIC NECK PAIN, LUMBAR RADICULOPATHY TECHNIQUE: 2 views of the lumbar spine were acquired. COMPARISON: None. FINDINGS: Bones: 5 [id number] vertebrae are present. There is trace retrolisthesis of L2 on L3, L3 on L4 . Moderate disc and foraminal narrowing is present at L5-S1 as well as moderate disc space narrowing at L1-L2. No vertebral body compression fractures. No suspicious bony lesions. Soft tissues: Overlying bowel gas pattern is normal. No suspicious soft tissue calcifications. IMPRESSION: Degenerative changes most notable at L5-S1. Reviewed by: Eileen Salcedo MD on 04/20/2020 4:43 PM PST Approved by: Eileen Salcedo MD on 04/20/2020 4:43 PM PST Station ID: [id number]
--- NOTE | 2020-04-20 16:46 | XRAY Report ---
PROCEDURE: Cervical Spine 2 View INDICATIONS: CHRONIC NECK PAIN,LUMBAR RADICULOPATHY TECHNIQUE: 2 view(s) of the cervical spine were acquired. COMPARISON: None. FINDINGS: Bones: No fractures or dislocations to the C7-T1 level. The lateral masses of C1 appear intact on t he odontoid view. No suspicious bony lesions. There is trace retrolisthesis of C4 on C5. Minimal di sc space narrowing is present at C4-5, C5-6. Multilevel uncovertebral hypertrophy is present. Soft tissues: No prevertebral soft tissue swelling. IMPRESSION: Degenerative changes most notable at C4-5 and C5-6. Reviewed by: Eileen Salcedo MD on 04/20/2020 4:44 PM PST Approved by: Eileen Salcedo MD on 04/20/2020 4:44 PM PST Station ID: [id number]
== END 2020-04-20 15:30 | disposition home or self-care (01) ==
LOC: DI 15:29
PROVIDERS: ATTEND Physician Assistant Medical
DX: M47.812 Spondylosis without myelopathy or radiculopathy, cervical region (principal); M50.321 Other cervical disc degeneration at C4-C5 level; M51.36 Other intervertebral disc degeneration, lumbar region; M51.37 Other intervertebral disc degeneration, lumbosacral region
CPT/HCPCS: 72040; 72100

== ENCOUNTER 2020-07-25 08:00 | Outpatient (CLI) | payer MEDICARE, MEDICAID ==
[2020-07-25 18:41] LABS: ALBUMIN 3.9 g/dL (3.2-5.5); ALBUMIN/GLOBULIN RATIO 1.4 (1.0-2.2); BILIRUBIN,TOTAL 0.7 mg/dL (0.2-1.0); CALCIUM 9.5 mg/dL (8.5-10.3); CREATININE 1.4 mg/dL (0.4-1.0); TOTAL PROTEIN 6.7 g/dL (6.7-8.2)
[2020-07-25 20:56] LABS: HEMOGLOBIN A1c% 5.6 % (4.27-6.07)
== END 2020-07-25 23:59 | disposition home or self-care (01) ==
LOC: LAB.WCP 08:00
PROVIDERS: ATTEND Physician Assistant Medical
DX: E11.29 Type 2 diabetes mellitus with other diabetic kidney complication (principal)
CPT/HCPCS: 36415; 80053; 83036

== ENCOUNTER 2021-03-29 08:12 | Outpatient (CLI) | payer MEDICARE, MEDICAID ==
[2021-03-29 13:38] LABS: ALBUMIN 3.9 g/dL (3.2-5.5); ALBUMIN/GLOBULIN RATIO 1.3 (1.0-2.2); ALKALINE PHOSPHATASE 57 IU/L (42-121); ALT ALANINE AMINOTRANSFERASE 21 IU/L (10-60); AST ASPARTATE AMINOTRANSFERASE 26 IU/L (10-42); BILIRUBIN,TOTAL 0.6 mg/dL (0.2-1.0); BUN - BLOOD UREA NITROGEN 34 mg/dL (6-20); CALCIUM 9.7 mg/dL (8.5-10.3); CARBON DIOXIDE - CO2 30 mmol/L (21-32); CHLORIDE 100 mmol/L (101-111); CHOL/HDL RATIO 2.4 (<4.4); CHOLESTEROL 129 mg/dL; CREATININE 1.4 mg/dL (0.4-1.0); GFR - MDRD 36 (>89); GLUCOSE 105 mg/dL (70-100); HDL CHOLESTEROL 53 mg/dL; LDL CHOLESTEROL,CALCULATED 50 mg/dL; LDL/HDL RATIO 0.9 (<4.4); POTASSIUM 4.1 mmol/L (3.5-5.0); SODIUM 142 mmol/L (135-145); TOTAL PROTEIN 6.9 g/dL (6.7-8.2); TRIGLYCERIDES 129 mg/dL; VLDL CHOLESTEROL 26 mg/dL
[2021-03-29 14:08] LABS: ESTIMATED AVERAGE GLUCOSE 128 mg/dL (70-100); HEMOGLOBIN A1c% 6.1 % (4.27-6.07)
[2021-03-29 18:50] LABS: CREATININE,URINE 119.3 mg/dL; MICROALBUM/CREATININE RATIO,UR 2098.9 ug/mg (<30.0); MICROALBUMIN,URINE 250.4 mg/dL (0-300.0)
== END 2021-03-29 23:59 | disposition home or self-care (01) ==
LOC: LAB.WCP 08:12
PROVIDERS: ATTEND Physician Assistant Medical
DX: E11.29 Type 2 diabetes mellitus with other diabetic kidney complication (principal)
CPT/HCPCS: 36415; 80053; 80061; 82043; 82570; 83036; 83721

== ENCOUNTER 2022-04-02 10:56 | Outpatient (CLI) | payer MEDICARE, MEDICAID ==
[2022-04-02 17:36] LABS: BASOPHILS # (AUTO) 0.1 10^3/uL (0.0-0.1); BASOPHILS % (AUTO) 0.4 %; EOSINOPHILS # (AUTO) 0.3 10^3/uL (0.0-0.7); EOSINOPHILS % (AUTO) 2.2 %; HCT - HEMATOCRIT 39.2 % (37.0-47.0); MEAN CORPUSCULAR HEMOGLOBIN 26.9 pg (27.0-31.0); MEAN CORPUSCULAR HGB CONC 30.6 g/dL (32.0-36.0); MEAN CORPUSCULAR VOLUME 87.9 fL (81.0-99.0); MEAN PLATELET VOLUME 11.5 fL (7.9-10.8); MONOCYTES # (AUTO) 1.2 10^3/uL (0.0-1.0); MONOCYTES % (AUTO) 8.5 %; NEUTROPHILS # (AUTO) 11.5 10^3/uL (1.5-6.6); NEUTROPHILS % (AUTO) 81.5 %; PLT - PLATELET COUNT 269 10^3/uL (130-450); RED BLOOD COUNT 4.46 10^6/uL (4.20-5.40); RED CELL DISTRIBUTION WIDTH 13.7 % (12.0-15.0); WHITE BLOOD COUNT 14.1 x10^3/uL (4.8-10.8)
[2022-04-02 18:15] LABS: ALBUMIN 3.6 g/dL (3.2-5.5); ALBUMIN/GLOBULIN RATIO 1.2 (1.0-2.2); ALKALINE PHOSPHATASE 75 IU/L (42-121); ALT ALANINE AMINOTRANSFERASE 19 IU/L (10-60); AST ASPARTATE AMINOTRANSFERASE 19 IU/L (10-42); BILIRUBIN,TOTAL 0.4 mg/dL (0.2-1.0); BUN - BLOOD UREA NITROGEN 33 mg/dL (6-20); CALCIUM 9.4 mg/dL (8.5-10.3); CARBON DIOXIDE - CO2 27 mmol/L (21-32); CHLORIDE 105 mmol/L (101-111); CHOLESTEROL 131 mg/dL; CREATININE 1.4 mg/dL (0.4-1.0); GFR - MDRD 36 (>89); GLUCOSE 123 mg/dL (70-100); HDL CHOLESTEROL 65 mg/dL; LDL CHOLESTEROL,CALCULATED 48 mg/dL; LDL/HDL RATIO 0.7 (<4.4); MAGNESIUM 1.9 mg/dL (1.7-2.8); POTASSIUM 4.4 mmol/L (3.5-5.0); SODIUM 140 mmol/L (135-145); TOTAL PROTEIN 6.5 g/dL (6.7-8.2); TRIGLYCERIDES 92 mg/dL; VLDL CHOLESTEROL 18 mg/dL
[2022-04-02 18:16] LABS: THYROID STIMULATING HORMONE 2.95 uIU/mL (0.34-5.60)
[2022-04-02 20:00] LABS: ESTIMATED AVERAGE GLUCOSE 137 mg/dL (70-100); HEMOGLOBIN A1c% 6.4 % (4.27-6.07)
== END 2022-04-02 10:57 | disposition home or self-care (01) ==
LOC: LAB.N 10:56
PROVIDERS: ATTEND Physician Assistant Medical
DX: E11.29 Type 2 diabetes mellitus with other diabetic kidney complication (principal); E78.5 Hyperlipidemia, unspecified; E83.42 Hypomagnesemia; D64.9 Anemia, unspecified
CPT/HCPCS: 36415; 80053; 80061; 83036; 83721; 83735; 84443; 85025

== ENCOUNTER 2022-04-11 13:30 | Outpatient (CLI) | payer MEDICARE, MEDICAID ==
[2022-04-11 18:14] LABS: BASOPHILS % (AUTO) 0.6 %; EOSINOPHILS % (AUTO) 2.3 %; HCT - HEMATOCRIT 35.3 % (37.0-47.0); LYMPHOCYTES % (AUTO) 11.2 %; MEAN CORPUSCULAR HEMOGLOBIN 27.2 pg (27.0-31.0); MEAN CORPUSCULAR HGB CONC 31.2 g/dL (32.0-36.0); MEAN CORPUSCULAR VOLUME 87.2 fL (81.0-99.0); MEAN PLATELET VOLUME 11.2 fL (7.9-10.8); MONOCYTES % (AUTO) 9.2 %; NEUTROPHILS % (AUTO) 76.3 %; PLT - PLATELET COUNT 269 10^3/uL (130-450); RED BLOOD COUNT 4.05 10^6/uL (4.20-5.40); RED CELL DISTRIBUTION WIDTH 13.9 % (12.0-15.0); WHITE BLOOD COUNT 9.7 x10^3/uL (4.8-10.8)
[2022-04-11 18:31] LABS: ABNORMAL LYMPHS % (MANUAL) 0 %; BAND NEUTROPHILS % (MANUAL) 0 %
[2022-04-11 19:00] LABS: EOSINOPHILS # (MANUAL) 0.2 10^3/uL (0-0.7); LYMPHOCYTES % (MANUAL) 10 %; MONOCYTES # (MANUAL) 0.8 10^3/uL (0.0-1.0); NEUTROPHILS # (MANUAL) 7.8 10^3/uL (1.5-6.6)
[2022-04-11 19:01] LABS: PLATELET ESTIMATE, MANUAL NORMAL (130-450,000) (NORMAL); PLATELET MORPHOLOGY NORMAL APPEARANCE (NORMAL); RBC MORPHOLOGY (MULTIPLE) NORMAL APPEARANCE (NORMAL); WBC MORPHOLOGY (MULTIPLE) NORMAL APPEARANCE (NORMAL)
[2022-04-11 19:03] LABS: DIFFERENTIAL COMMENT MANUAL DIFFERENTIAL
== END 2022-04-11 13:31 | disposition home or self-care (01) ==
LOC: LAB.N 13:30
PROVIDERS: ATTEND Family Medicine
DX: D72.829 Elevated white blood cell count, unspecified (principal)
CPT/HCPCS: 36415; 85025

== ENCOUNTER 2022-12-15 10:24 | Outpatient (CLI) | payer MEDICARE, MEDICAID ==
[2022-12-15 12:24] LABS: BASOPHILS # (AUTO) 0.1 10^3/uL (0.0-0.1); BASOPHILS % (AUTO) 0.7 %; EOSINOPHILS # (AUTO) 0.3 10^3/uL (0.0-0.7); EOSINOPHILS % (AUTO) 2.9 %; HCT - HEMATOCRIT 35.6 % (37.0-47.0); HGB - HEMOGLOBIN 11.2 g/dL (12.0-16.0); LYMPHOCYTES % (AUTO) 11.6 %; MEAN CORPUSCULAR HEMOGLOBIN 27.1 pg (27.0-31.0); MEAN CORPUSCULAR HGB CONC 31.5 g/dL (32.0-36.0); MEAN CORPUSCULAR VOLUME 86.2 fL (81.0-99.0); MEAN PLATELET VOLUME 11.4 fL (7.9-10.8); MONOCYTES # (AUTO) 0.6 10^3/uL (0.0-1.0); MONOCYTES % (AUTO) 6.8 %; NEUTROPHILS # (AUTO) 6.6 10^3/uL (1.5-6.6); NEUTROPHILS % (AUTO) 77.6 %; PLT - PLATELET COUNT 266 10^3/uL (130-450); RED BLOOD COUNT 4.13 10^6/uL (4.20-5.40); RED CELL DISTRIBUTION WIDTH 15.3 % (12.0-15.0); WHITE BLOOD COUNT 8.5 x10^3/uL (4.8-10.8)
[2022-12-15 12:45] LABS: ESTIMATED AVERAGE GLUCOSE 128 mg/dL (70-100); HEMOGLOBIN A1c% 6.1 % (4.27-6.07)
[2022-12-15 12:54] LABS: ALBUMIN 3.1 g/dL (3.2-5.5); ALKALINE PHOSPHATASE 68 IU/L (42-121); ALT ALANINE AMINOTRANSFERASE 16 IU/L (10-60); AST ASPARTATE AMINOTRANSFERASE 18 IU/L (10-42); BILIRUBIN,TOTAL 0.4 mg/dL (0.2-1.0); BUN - BLOOD UREA NITROGEN 32 mg/dL (6-20); CALCIUM 9.3 mg/dL (8.5-10.3); CARBON DIOXIDE - CO2 26 mmol/L (21-32); CHLORIDE 111 mmol/L (101-111); CHOL/HDL RATIO 2.4 (<4.4); CHOLESTEROL 131 mg/dL; CREATININE 1.5 mg/dL (0.4-1.0); GFR - MDRD 33 (>89); GLUCOSE 108 mg/dL (70-100); HDL CHOLESTEROL 54 mg/dL; LDL CHOLESTEROL,CALCULATED 43 mg/dL; LDL/HDL RATIO 0.8 (<4.4); MAGNESIUM 1.6 mg/dL (1.7-2.8); POTASSIUM 4.2 mmol/L (3.5-5.0); SODIUM 141 mmol/L (135-145); TOTAL PROTEIN 6.2 g/dL (6.7-8.2); TRIGLYCERIDES 171 mg/dL; VLDL CHOLESTEROL 34 mg/dL
== END 2022-12-15 10:25 | disposition home or self-care (01) ==
LOC: LAB.N 10:24
PROVIDERS: ATTEND Physician Assistant Medical
DX: E11.29 Type 2 diabetes mellitus with other diabetic kidney complication (principal); E78.5 Hyperlipidemia, unspecified; E83.42 Hypomagnesemia; D64.9 Anemia, unspecified
CPT/HCPCS: 36415; 80053; 80061; 83036; 83721; 83735; 85025

== ENCOUNTER 2023-02-08 22:35 | Emergency (ER) | payer MEDICARE, MEDICAID ==
[2023-02-08 23:12] LABS: BASOPHILS # (AUTO) 0.1 10^3/uL (0.0-0.1); BASOPHILS % (AUTO) 0.5 %; EOSINOPHILS # (AUTO) 0.3 10^3/uL (0.0-0.7); EOSINOPHILS % (AUTO) 2.9 %; HCT - HEMATOCRIT 33.9 % (37.0-47.0); HGB - HEMOGLOBIN 10.8 g/dL (12.0-16.0); LYMPHOCYTES # (AUTO) 1.1 10^3/uL (1.5-3.5); LYMPHOCYTES % (AUTO) 10.9 %; MEAN CORPUSCULAR HEMOGLOBIN 27.4 pg (27.0-31.0); MEAN CORPUSCULAR HGB CONC 31.9 g/dL (32.0-36.0); MEAN PLATELET VOLUME 10.3 fL (7.9-10.8); MONOCYTES # (AUTO) 0.9 10^3/uL (0.0-1.0); MONOCYTES % (AUTO) 9.2 %; NEUTROPHILS # (AUTO) 7.5 10^3/uL (1.5-6.6); NEUTROPHILS % (AUTO) 76.1 %; PLT - PLATELET COUNT 245 10^3/uL (130-450); RED BLOOD COUNT 3.94 10^6/uL (4.20-5.40); RED CELL DISTRIBUTION WIDTH 14.6 % (12.0-15.0); WHITE BLOOD COUNT 9.8 x10^3/uL (4.8-10.8)
[2023-02-08 23:28] LABS: ALBUMIN 3.5 g/dL (3.2-5.5); ALBUMIN/GLOBULIN RATIO 1.3 (1.0-2.2); BILIRUBIN,TOTAL 0.4 mg/dL (0.2-1.0); CREATININE 1.7 mg/dL (0.6-1.3); POTASSIUM 3.9 mmol/L (3.5-4.5); TOTAL PROTEIN 6.3 g/dL (6.4-8.9)
[2023-02-09 00:47] VITALS: BP 179/51; O2SAT 94
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
== END 2023-02-09 01:01 | disposition home or self-care (01) ==
LOC: ED 22:35
DX: I10 Essential (primary) hypertension (principal); N17.9 Acute kidney failure, unspecified
CPT/HCPCS: 36415; 80053; 83690; 85025; 99283; 99284

== ENCOUNTER 2023-02-18 12:12 | Outpatient (CLI) | payer MEDICARE, MEDICAID ==
[2023-02-18 17:54] LABS: BASOPHILS # (AUTO) 0.1 10^3/uL (0.0-0.1); BASOPHILS % (AUTO) 0.8 %; EOSINOPHILS # (AUTO) 0.2 10^3/uL (0.0-0.7); HCT - HEMATOCRIT 31.5 % (37.0-47.0); HGB - HEMOGLOBIN 9.5 g/dL (12.0-16.0); LYMPHOCYTES # (AUTO) 0.7 10^3/uL (1.5-3.5); LYMPHOCYTES % (AUTO) 8.9 %; MEAN CORPUSCULAR HEMOGLOBIN 26.5 pg (27.0-31.0); MEAN CORPUSCULAR HGB CONC 30.2 g/dL (32.0-36.0); MEAN PLATELET VOLUME 11.2 fL (7.9-10.8); MONOCYTES # (AUTO) 0.8 10^3/uL (0.0-1.0); NEUTROPHILS # (AUTO) 6.5 10^3/uL (1.5-6.6); NEUTROPHILS % (AUTO) 78.1 %; PLT - PLATELET COUNT 228 10^3/uL (130-450); RED BLOOD COUNT 3.58 10^6/uL (4.20-5.40); RED CELL DISTRIBUTION WIDTH 14.2 % (12.0-15.0); WHITE BLOOD COUNT 8.4 x10^3/uL (4.8-10.8)
[2023-02-18 18:06] LABS: CALCIUM 9.3 mg/dL (8.5-10.3); CREATININE 1.4 mg/dL (0.6-1.3)
== END 2023-02-18 12:13 | disposition home or self-care (01) ==
LOC: LAB.N 12:12
PROVIDERS: ATTEND Family Medicine
DX: N17.9 Acute kidney failure, unspecified (principal)
CPT/HCPCS: 36415; 80048; 85025

== ENCOUNTER 2023-03-26 13:28 | Outpatient (CLI) | payer MEDICARE, MEDICAID ==
[2023-03-26 17:47] LABS: ABSOLUTE RETICS # AUTO 0.059 10^6/uL (0.020-0.110); BASOPHILS # (AUTO) 0.1 10^3/uL (0.0-0.1); BASOPHILS % (AUTO) 0.6 %; EOSINOPHILS # (AUTO) 0.3 10^3/uL (0.0-0.7); EOSINOPHILS % (AUTO) 2.7 %; HCT - HEMATOCRIT 32.1 % (37.0-47.0); HGB - HEMOGLOBIN 9.8 g/dL (12.0-16.0); LYMPHOCYTES # (AUTO) 0.8 10^3/uL (1.5-3.5); LYMPHOCYTES % (AUTO) 8.3 %; MEAN CORPUSCULAR HEMOGLOBIN 26.6 pg (27.0-31.0); MEAN CORPUSCULAR HGB CONC 30.5 g/dL (32.0-36.0); MEAN PLATELET VOLUME 11.6 fL (7.9-10.8); MONOCYTES # (AUTO) 0.9 10^3/uL (0.0-1.0); MONOCYTES % (AUTO) 9.4 %; NEUTROPHILS # (AUTO) 7.4 10^3/uL (1.5-6.6); NEUTROPHILS % (AUTO) 78.6 %; PLT - PLATELET COUNT 240 10^3/uL (130-450); RED BLOOD COUNT 3.69 10^6/uL (4.20-5.40); WHITE BLOOD COUNT 9.5 x10^3/uL (4.8-10.8)
[2023-03-26 18:18] LABS: THYROID STIMULATING HORMONE 3.81 uIU/mL (0.34-5.60)
[2023-03-26 18:24] LABS: FERRITIN 32.7 ng/mL (11.0-306.8)
== END 2023-03-26 13:29 | disposition home or self-care (01) ==
LOC: LAB.N 13:28
PROVIDERS: ATTEND Physician Assistant
DX: I10 Essential (primary) hypertension (principal); R09.02 Hypoxemia; D64.9 Anemia, unspecified
CPT/HCPCS: 36415; 82607; 82728; 82746; 83540; 83880; 84443; 84466; 85025; 85045

== ENCOUNTER 2023-06-25 15:08 | Outpatient (CLI) | payer MEDICARE, MEDICAID ==
[2023-06-25 17:55] LABS: BASOPHILS # (AUTO) 0.1 10^3/uL (0.0-0.1); BASOPHILS % (AUTO) 0.5 %; EOSINOPHILS # (AUTO) 0.2 10^3/uL (0.0-0.7); EOSINOPHILS % (AUTO) 2.2 %; HCT - HEMATOCRIT 36.5 % (37.0-47.0); HGB - HEMOGLOBIN 11.2 g/dL (12.0-16.0); LYMPHOCYTES # (AUTO) 0.9 10^3/uL (1.5-3.5); LYMPHOCYTES % (AUTO) 8.4 %; MEAN CORPUSCULAR HEMOGLOBIN 25.1 pg (27.0-31.0); MEAN CORPUSCULAR HGB CONC 30.7 g/dL (32.0-36.0); MEAN CORPUSCULAR VOLUME 81.8 fL (81.0-99.0); MEAN PLATELET VOLUME 11.6 fL (7.9-10.8); MONOCYTES # (AUTO) 0.9 10^3/uL (0.0-1.0); MONOCYTES % (AUTO) 7.9 %; NEUTROPHILS # (AUTO) 8.8 10^3/uL (1.5-6.6); NEUTROPHILS % (AUTO) 80.6 %; PLT - PLATELET COUNT 278 10^3/uL (130-450); RED BLOOD COUNT 4.46 10^6/uL (4.20-5.40); WHITE BLOOD COUNT 10.9 x10^3/uL (4.8-10.8)
[2023-06-25 18:06] LABS: CREATININE,URINE 88.9 mg/dL
[2023-06-25 18:10] LABS: ALBUMIN 3.7 g/dL (3.2-5.5); ALBUMIN/GLOBULIN RATIO 1.3 (1.0-2.2); ALKALINE PHOSPHATASE 88 IU/L (42-121); ALT ALANINE AMINOTRANSFERASE 20 IU/L (10-60); AST ASPARTATE AMINOTRANSFERASE 23 IU/L (10-42); BILIRUBIN,TOTAL 0.3 mg/dL (0.2-1.0); BUN - BLOOD UREA NITROGEN 35 mg/dL (6-20); CALCIUM 9.3 mg/dL (8.5-10.3); CARBON DIOXIDE - CO2 25 mmol/L (21-32); CHLORIDE 105 mmol/L (101-111); CHOL/HDL RATIO 2.6 (<4.4); CHOLESTEROL 138 mg/dL; CREATININE 1.7 mg/dL (0.6-1.3); GFR - MDRD 29 (>89); GLUCOSE 94 mg/dL (74-104); HDL CHOLESTEROL 54 mg/dL; LDL CHOLESTEROL,CALCULATED 23 mg/dL; LDL/HDL RATIO 0.4 (<4.4); POTASSIUM 4.6 mmol/L (3.5-4.5); SODIUM 138 mmol/L (135-145); TOTAL PROTEIN 6.6 g/dL (6.4-8.9); TRIGLYCERIDES 307 mg/dL (48-352); VLDL CHOLESTEROL 61 mg/dL
[2023-06-25 18:21] LABS: MICROALBUMIN,URINE > 225.0 mg/dL
[2023-06-25 20:18] LABS: ESTIMATED AVERAGE GLUCOSE 154 mg/dL (70-100)
== END 2023-06-25 15:09 | disposition home or self-care (01) ==
LOC: LAB.N 15:08
PROVIDERS: ATTEND Physician Assistant
DX: E11.29 Type 2 diabetes mellitus with other diabetic kidney complication (principal)
CPT/HCPCS: 36415; 80053; 80061; 82043; 82570; 83036; 83721; 85025

== ENCOUNTER 2023-09-24 11:17 | Outpatient (CLI) | payer MEDICARE, MEDICAID ==
[2023-09-24 17:46] LABS: BASOPHILS # (AUTO) 0.1 10^3/uL (0.0-0.1); BASOPHILS % (AUTO) 0.7 %; EOSINOPHILS # (AUTO) 0.3 10^3/uL (0.0-0.7); EOSINOPHILS % (AUTO) 3.5 %; HCT - HEMATOCRIT 35.4 % (37.0-47.0); HGB - HEMOGLOBIN 10.5 g/dL (12.0-16.0); LYMPHOCYTES # (AUTO) 0.9 10^3/uL (1.5-3.5); LYMPHOCYTES % (AUTO) 9.2 %; MEAN CORPUSCULAR HEMOGLOBIN 24.6 pg (27.0-31.0); MEAN CORPUSCULAR HGB CONC 29.7 g/dL (32.0-36.0); MEAN CORPUSCULAR VOLUME 82.9 fL (81.0-99.0); MEAN PLATELET VOLUME 12.5 fL (7.9-10.8); MONOCYTES # (AUTO) 0.7 10^3/uL (0.0-1.0); MONOCYTES % (AUTO) 7.6 %; NEUTROPHILS # (AUTO) 7.5 10^3/uL (1.5-6.6); NEUTROPHILS % (AUTO) 78.5 %; PLT - PLATELET COUNT 264 10^3/uL (130-450); RED BLOOD COUNT 4.27 10^6/uL (4.20-5.40); RED CELL DISTRIBUTION WIDTH 15.2 % (12.0-15.0); WHITE BLOOD COUNT 9.6 x10^3/uL (4.8-10.8)
[2023-09-24 18:12] LABS: ALBUMIN 3.6 g/dL (3.2-5.5); ALBUMIN/GLOBULIN RATIO 1.1 (1.0-2.2); ALKALINE PHOSPHATASE 98 IU/L (42-121); ALT ALANINE AMINOTRANSFERASE 21 IU/L (10-60); AST ASPARTATE AMINOTRANSFERASE 26 IU/L (10-42); BILIRUBIN,TOTAL 0.3 mg/dL (0.2-1.0); BUN - BLOOD UREA NITROGEN 38 mg/dL (6-20); CALCIUM 9.6 mg/dL (8.5-10.3); CARBON DIOXIDE - CO2 24 mmol/L (21-32); CHLORIDE 106 mmol/L (101-111); CHOL/HDL RATIO 2.6 (<4.4); CHOLESTEROL 127 mg/dL; GFR - MDRD 24 (>89); GLUCOSE 120 mg/dL (74-104); HDL CHOLESTEROL 49 mg/dL; LDL CHOLESTEROL,CALCULATED 52 mg/dL; LDL/HDL RATIO 1.1 (<4.4); POTASSIUM 5.3 mmol/L (3.5-4.5); SODIUM 137 mmol/L (135-145); TOTAL PROTEIN 6.8 g/dL (6.4-8.9); TRIGLYCERIDES 131 mg/dL (48-352); VLDL CHOLESTEROL 26 mg/dL
[2023-09-24 21:11] LABS: ESTIMATED AVERAGE GLUCOSE 148 mg/dL (70-100); HEMOGLOBIN A1c% 6.8 % (4.27-6.07)
== END 2023-09-24 11:18 | disposition home or self-care (01) ==
LOC: LAB.N 11:17
PROVIDERS: ATTEND Physician Assistant Medical
DX: I10 Essential (primary) hypertension (principal); E78.5 Hyperlipidemia, unspecified; E11.22 Type 2 diabetes mellitus with diabetic chronic kidney disease
CPT/HCPCS: 36415; 80053; 80061; 83036; 83721; 85025

== ENCOUNTER 2023-12-07 13:43 | Outpatient (CLI) | payer MEDICARE, MEDICAID ==
[2023-12-07 18:16] LABS: CALCIUM 9.4 mg/dL (8.5-10.3); CREATININE 1.9 mg/dL (0.6-1.3); PHOSPHORUS 4.7 mg/dL (2.5-5.0); POTASSIUM 4.7 mmol/L (3.5-4.5)
[2023-12-07 18:18] LABS: HCT - HEMATOCRIT 34.9 % (37.0-47.0); HGB - HEMOGLOBIN 10.5 g/dL (12.0-16.0); MEAN CORPUSCULAR HEMOGLOBIN 25.7 pg (27.0-31.0); MEAN CORPUSCULAR HGB CONC 30.1 g/dL (32.0-36.0); MEAN CORPUSCULAR VOLUME 85.3 fL (81.0-99.0); MEAN PLATELET VOLUME 11.6 fL (7.9-10.8); RED BLOOD COUNT 4.09 10^6/uL (4.20-5.40); RED CELL DISTRIBUTION WIDTH 17.8 % (12.0-15.0); WHITE BLOOD COUNT 7.7 x10^3/uL (4.8-10.8)
[2023-12-07 20:26] LABS: ESTIMATED AVERAGE GLUCOSE 134 mg/dL (70-100); HEMOGLOBIN A1c% 6.3 % (4.27-6.07)
== END 2023-12-07 13:44 | disposition home or self-care (01) ==
LOC: LAB.N 13:43
PROVIDERS: ATTEND Internal Medicine Nephrology
DX: N05.9 Unspecified nephritic syndrome with unspecified morphologic changes (principal); N25.81 Secondary hyperparathyroidism of renal origin; E83.30 Disorder of phosphorus metabolism, unspecified; D70.9 Neutropenia, unspecified; D63.1 Anemia in chronic kidney disease; E11.29 Type 2 diabetes mellitus with other diabetic kidney complication
CPT/HCPCS: 36415; 80048; 83036; 83970; 84100; 85027